=== PATIENT | female | born 1990 | race Caucasian/White ===

== ENCOUNTER 2016-08-02 04:56 | Emergency (ER) | payer OTHER | END 2016-08-02 05:30 | disposition home or self-care (01) | LOC: CED 04:56 | DX: T40.1X1A Poisoning by heroin, accidental (unintentional), initial encounter (principal); F32.9 Major depressive disorder, single episode, unspecified; F17.210 Nicotine dependence, cigarettes, uncomplicated; Z91.018 Allergy to other foods | CPT/HCPCS: 99282 ==